=== PATIENT | female | born 1980 | race Caucasian/White ===

== ENCOUNTER 2016-09-20 21:09 | Inpatient (IN) | payer OTHER ==
--- NOTE | ~2016-09-20 | CR63 ---
[facility] A Service of [facility] RADIOLOGY TEXT RESULTS PATIENT: BERRY TRINH LOCATION: [facility] 229-01 : [birth year] UNIT #: [id number] AGE: [address]: Sara Aldridge MD SEX: F ORDER DR: [id number] [facility]. [place], [place] [address] [id number] MR#: [id number] Acc #: [id number] NAME: BERRY TRINH. : 1980 SEX: F STUDY DATE/TIME: 09/20/2016 22:03 UNIT: C3A PCU ROOM: Count includes the [facility] STUDY DESCRIPTION: CR Chest 2 View Attending Physician: Sara Aldridge M.D. Referring Physician: Jonn Castillo Pa-C Ordering Physician: Sher Perla M.D. Primary Care Physician: Jonn Castillo Pa-C MEDICAL IMAGING REPORT This report is preliminary unless electronic signature is present EXAM PA and lateral chest Date: 09/20/2016 HISTORY 36-year-old female shortness breath, dyspnea and chest pain for 2 days. COMPARISON PA and lateral chest 07/04/2011 FINDINGS Increased interstitial thickening is present within both lungs in comparison to the 2010 study which is nonspecific and could represent changes of atypical interstitial pneumonia or noncardiogenic edema. Heart size is not appreciably enlarged. No pleural effusion or pneumothorax is identified. No acute osseous abnormalities are seen. IMPRESSION Increased interstitial thickening is seen centrally in both lungs when compared to the 07/04/2011 chest radiograph, may represent changes of interstitial pneumonia. Noncardiogenic pulmonary edema may also be considered. The heart size does not appear enlarged. Dictated by... Ame Anne M.D. THIS IS AN ELECTRONICALLY VERIFIED REPORT Ame Anne M.D. at 09/25/2016 8:38 AM LLH/eladio TD: 09/21/2016 09:36 JOB #: [id number] [facility] A Service of [facility] RADIOLOGY TEXT RESULTS PATIENT: BERRY TRINH LOCATION: [facility] 229[facility] : [birth year] UNIT #: [id number] AGE: [address]: Sara Aldridge MD SEX: F ORDER DR: MEDICAL IMAGING REPORT Page 1 of 1 COPY
--- NOTE | ~2016-09-20 | HP ---
Unit #: [id number] #: [id number] Patient: BERRY TRINH [id number] [address] [place], [place] [address] [id number] I MR#: [id number] NAME: BERRY TRINH. ROOM: 339 Age: 36 Sex: F Admission Date: 09/21/2016 : 1980 Attending Physician: Jennifer Zhou M.D. Referring Physician: Jonn Castillo Pa-C Primary Care Physician: Jonn Castillo Pa-C HISTORY AND PHYSICAL CHIEF COMPLAINT COPD exacerbation pneumonia. HISTORY This pleasant 36-year-old female with COPD, chronic sinus disease, is admitted for COPD exacerbation and pneumonia. The patient was well until three days prior to admission when she developed a sore throat, rhinorrhea, deep cough productive of clear sputum with increasing shortness of breath and bronchospasm. She was seen by her primary care physician yesterday. Although her influenza swab was negative, she was started on Tamiflu just in case, given prednisone and what sounds to be Zithromax along with a Ventolin inhaler. She became increasingly dyspneic throughout the day, and developed nausea and vomiting. She presented to this emergency department late last evening with sinus tachycardia. Chest x-ray shows increased interstitial thickening both lungs, possibly consistent with pneumonia. In the ER she was treated with Solu-Medrol, Phenergan, Robitussin, being boluses with a liter of saline, Levaquin and Tylenol. She does have significant bronchospasm on exam. PAST MEDICAL HISTORY 1. COPD. 2. Chronic sinus disease. 3. Patient states that she was in a coma two years ago after a drug overdose requiring tracheostomy and PEG tube placement. 4. D and C. 5. BTL. 6. Bilateral ORIF ankle fractures. ALLERGIES Augmentin causing nausea and vomiting. HOME MEDICATIONS Patient takes Neurontin 400 mg q.h.s. p.r.n. She was prescribed Tamiflu, Ventolin, Zithromax, prednisone yesterday. FAMILY HISTORY Lung cancer and CAD. SOCIAL HISTORY The patient is living with her boyfriend. She smokes between 1/2 to 1 pack per day of tobacco but stopped smoking yesterday. Has not used drugs for some time, and does not drink alcohol. Patient wants to stop smoking. Unit #: [id number] #: [id number] Patient: BERRY TRINH REVIEW OF SYSTEMS Notable for shortness of breath, wheezing, cough, rhinorrhea, COPD, sinus disease, previous drug overdose and a coma for two months, above mentioned surgeries, tobacco use. All other systems were reviewed and otherwise negative. PHYSICAL EXAMINATION GENERAL: Pleasant, obese, 36-year-old female currently in no acute distress after receiving Phenergan. VITAL SIGNS: Temperature 98.8, pulse 138, current heart rate about 130, respirations 22, blood pressure 122/80, O2 saturation was 96% on room air initially but had dipped to about 90% intermittently. HEENT: Eyes - PERRLA, extraocular muscles are intact. Pharynx is benign. Tongue is pierced. NECK: Supple without adenopathy or thyromegaly. CHEST: Reveals expiratory wheezes bilaterally. CARDIAC: Tachy S1 and S2 without murmur. ABDOMEN: Bowel sounds are present. No hepatosplenomegaly, tenderness or masses. EXTREMITIES: Without clubbing, cyanosis or edema. Pedal pulses are present. NEUROLOGIC: Patient is awake, alert and oriented. Cranial nerves are intact. Equal strength throughout. DIAGNOSTIC STUDIES LABS: Hematocrit 40.9, white blood count is 14, normal platelet count. Cardiac markers negative. D-dimer is normal at 420. SMA 12 - glucose is 150, CO2 19. BNP normal. Blood cultures are pending. IMAGING STUDIES: Chest x-ray - increased interstitial thickening in both lungs. CARDIOLOGY STUDIES: EKG - sinus tachycardia rate 134. ASSESSMENT 1. COPD exacerbation with likely early pneumonia, which could be viral versus bacterial. Patent was appropriately treated yesterday, but is failing treatment. In the ER intermittently had decreased OT sats. 2. Sinus tachycardia. 3. Tobacco abuse. PLANS 1. Patient is already on Tamiflu, which I will continue. Given antibiotics, IV steroids, mucolytics, Xopenex mini-neb, and start Symbicort. 2. IV fluids and supportive treatment. 3. DVT prophylaxis. 4. Smoking cessation counseling. 5. Await blood cultures, will check thyroid function test and HIV. Dictated by Jennifer Zhou M.D. FRANCESCO/marylu Unit #: [id number] #: [id number] Patient: BERRY TRINH TD: 09/21/2016 05:44 JOB #: [id number] HISTORY AND PHYSICAL X Jennifer Zhou MD X HISTORY AND PHYSICAL
--- NOTE | ~2016-09-20 | DS ---
Unit #: [id number] #: [id number] Patient: BERRY TRINH [id number] [address] [place], [place] [address] [id number] I MR#: [id number] NAME: BERRY TRINH. ROOM: 229 Age: 36 Sex: F Admission Date: 09/21/2016 : 1980 Discharge Date: 09/24/2016 Attending Physician: Sara Aldridge M.D. Referring Physician: Jonn Castillo Pa-C Primary Care Physician: Jonn Castillo Pa-C DISCHARGE SUMMARY DISCHARGE DIAGNOSES 1. Acute hypoxic respiratory failure, which has resolved at this time. 2. Acute chronic obstructive pulmonary disease exacerbation and will be discharged with low-dose of steroid to taper. 3. Community-acquired pneumonia. We are treating for presumed gram-negative ian and the patient has been afebrile during her entire course of hospitalization. 4. B12 deficiency, replacing. 5. Obesity. Stressed weight loss with this patient. 6. Detectable glucose in her urine; will be checking for an Alc level. CONSULTANTS None. PROCEDURES None. DIAGNOSTIC STUDIES IMAGING STUDIES: Consist of a chest x-ray 2-view on 09/20/2016 with impression of increased interstitial thickening is seen essentially in both lungs when compared to that on 07/04/2011 chest radiograph that may represent changes of interstitial pneumonia, noncardiogenic pulmonary edema may also be considered, the heart size does not appear enlarged. Chest x-ray 2-view on 09/22/2016 with impression previously noted interstitial opacity, no acute cardiopulmonary findings. CT without contrast on 09/22/2016 with impression of mild patchy multifocal subsegmental infiltrates in the bilateral upper lobes and to a lesser degree in the right middle lobe. These are nonspecific, but could be due to multifocal pneumonia. Minimal subsegmental atelectasis in the right middle lobe and in the lingula. Small hiatal hernia. No adenopathy. No pleural effusion. LABORATORY RESULTS: The patient's latest labs include BMP with glucose of 131, BUN 18, creatinine 0.9, sodium 135, potassium 3.9, chloride 111, CO2 of 21, calcium 8.4, magnesium 2.0, total protein is 7.6, albumin is 4.1, total bilirubin is 0.7, AST is 27, ALT is 27, alkaline phosphatase is 46. BNP when assessed was 26. B12 when assessed was 212. TSH was 0.48, free T4 0.71. CBC with WBC of 21.6, RBC of 4.21, hemoglobin is 12.6, hematocrit is 38.9, MCV is 29.5, MCH is 30.0, MCHC is 32.4, RDW is 32.5, platelets are 307, MPV is 8.8. Unit #: [id number] #: [id number] Patient: BERRY TRINH We had the patient's blood drawn and cultured with no growth at this time. HOSPITAL COURSE The patient is a 36-year-old female who presented to the emergency department with 3 days symptoms prior to admission when she was feeling of sore throat, rhinorrhea, deep cough productive of clear sputum with increasing shortness of breath and bronchospasm. She was seen by her primary care physician the day prior to the hospitalization and had a flu swab, which was negative, but she was started on Tamiflu, just in case she was given prednisone and possibly azithromycin with Ventolin inhaler. She became increasingly dyspneic throughout the day of admission and developed nausea and vomiting. She presented to the emergency department when she was found to have sinus tachycardia. Chest x-ray shows increased interstitial thickening in both lungs concerning for a pneumonia. In the emergency department, she was given IV Solu-Medrol, Phenergan, Robitussin, and had been given bolus of saline as well as Levaquin and Tylenol. She had significant bronchospasm on exam and we have been treating the patient with Levaquin for the pneumonia, presumed to be gram-negative ian. Blood culture was drawn, but she had no growth at this time. The patient's admitting white blood count was 13,900. With hydration, that had improved to 9200, currently is 21,600 likely due to the steroid that she is receiving for the COPD exacerbation. She has been afebrile at this time. We have stressed with the patient the need to abstain from tobacco use that she had voiced understanding. At this time, she is not requiring oxygen. Room air saturation is 96%. We will be testing her oxygen with ambulation if she does well and does not desaturate into the 80s and she can be discharged home with continuing usage of bronchodilators, mucolytics, and 5 more days of Levaquin. I did check her urinalysis, which revealed no evidence of urine infection, but she did have greater than no ketone was detected, no protein was detected. She did not have any other symptoms of diabetes and her morning glucose in the last 2 days has been 118 and 131, and I will be checking an A1c level. I spoke with the patient that she can have her family doctor follow up with this A1c level. I stressed her about the need to lose weight for her obesity as well as lifestyle modification for the possibility of having diabetes. She voiced understanding. DISCHARGE MEDICATIONS Include Ventolin inhaler 2 puffs inhaled every 4 to 6 hours as needed for shortness of breath and/or wheezing; prednisone 40 mg orally for 3 days, 30 mg orally for 3 days, 20 mg orally for 3 days, 10 mg orally for 3 days; gabapentin 400 mg orally t.i.d. as was prior to hospitalization; Tessalon Perles 200 mg orally every 8 hours as needed for coughing, prescription was given; stop Tamiflu; stop azithromycin; Dulera 2 puffs inhaled b.i.d.; she can continue to have the guaifenesin over the counter 600 mg orally b.i.d.; vitamin B12 1000 mcg orally daily; Levaquin 750 mg orally daily for the next 5 days. The patient was asking for Robitussin with Codeine. We will leave this for Dr. Aldridge to assess and if needed, he will write the patient prescription as I do not have the authority to prescribe codeine. DISCHARGE CONDITION Stable. DISCHARGE INSTRUCTIONS Follow up with primary care physician within 1 to 2 weeks with a repeat chest x-ray to ensure resolution of her multifocal pneumonia. The patient's primary care physician is a partner of Dr. Jonn Castillo Unit #: [id number] #: [id number] Patient: BERRY TRINH which she cannot remember the name, but said that Dr. Castillo had retired and seeing somebody in the same facility. Dictated by... Nir Betancourt PA-C for Mansoor Moreno/surinder TD: 09/25/2016 06:11 JOB #: [id number] DISCHARGE SUMMARY Page 1 of 1 X X DISCHARGE SUMMARY
--- NOTE | ~2016-09-20 | CT57 ---
[facility] A Service of [facility] & [facility] RADIOLOGY TEXT RESULTS PATIENT: BERRY TRINH LOCATION: [facility] 339-01 : [birth year] UNIT #: [id number] AGE: [address]: Sara Aldridge MD SEX: F ORDER DR: [id number] [facility]. [place], [place] [address] [id number] I MR#: [id number] Acc #: [id number] NAME: BERRY TRINH. : 1980 SEX: F STUDY DATE/TIME: 09/22/2016 13:06 UNIT: [address] ROOM: [facility] STUDY DESCRIPTION: CT Chest Wo Cont Attending Physician: Sara Aldridge M.D. Referring Physician: Jonn Castillo Pa-C Ordering Physician: Sara Aldridge M.D. Primary Care Physician: Jonn Castillo Pa-C MEDICAL IMAGING REPORT This report is preliminary unless electronic signature is present EXAM CT chest without contrast HISTORY Pneumonia, COPD, cough, shortness of air and weakness since yesterday. TECHNIQUE This CT examination was performed with one or more of the following radiation dose reduction techniques: automatic exposure control, adjustment of mA and/or kV according to patient size, and iterative reconstruction. FINDINGS CT chest without contrast demonstrates minimal patchy multifocal subsegmental infiltrates in the bilateral upper lobes and, to a lesser degree in the right middle lobe. There is also mild subsegmental atelectasis in the medial right middle lobe and in the inferior lingula. No pleural effusions. No adenopathy. Normal caliber thoracic aorta. IMPRESSION 1. Mild patchy multifocal subsegmental infiltrates in the bilateral upper lobes and to a lesser degree in the right middle lobe. These are nonspecific but could be due to multifocal pneumonia. 2. Minimal subsegmental atelectasis in the right middle lobe and in the lingula. 3. Small hiatal hernia. 4. No adenopathy. No pleural effusions. Dictated by... Gustavo Gibson M.D. THIS IS AN ELECTRONICALLY VERIFIED REPORT [facility] A Service of [facility] & [facility] RADIOLOGY TEXT RESULTS PATIENT: BERRY TRINH LOCATION: [facility] 339-01 : [birth year] UNIT #: [id number] AGE: [address]: Sara Aldridge MD SEX: F ORDER DR: Gustavo Gibson M.D. at 09/23/2016 3:06 PM NATALIO/kelly TD: 09/23/2016 13:58 JOB #: [id number] MEDICAL IMAGING REPORT COPY
--- NOTE | ~2016-09-20 | EKG ---
PATIENT: BERRY TRINH UNIT #: [id number] Ventricular Rate: 134 BPM Atrial Rate: 134 BPM P-R Interval: 140 ms QRS Duration: 84 ms Q-T Interval: 298 ms QTC Calculation(Bezet): 445 ms P Berlin: 56 degrees Calculated R Berlin: 64 degrees Calculated T Berlin: 46 degrees Diagnosis Line: Sinus tachycardia Diagnosis Line: Poor R wave progression questionable lead position Diagnosis Line: or body habitus Nonspecific ST abnormality Diagnosis Line: Abnormal ECG Diagnosis Line: No previous ECGs available Diagnosis Line: Confirmed by VLADIMIR MO MD ([id number]) on 09/24/2016 Diagnosis Line: 7:17:19 AM INTERPRETING MD: CHELY SADLER
--- NOTE | ~2016-09-20 | CR63 ---
[facility] A Service of [facility] & [facility] RADIOLOGY TEXT RESULTS PATIENT: BERRY TRINH LOCATION: [facility] 339-01 : [birth year] UNIT #: [id number] AGE: [address]: Sara Aldridge MD SEX: F ORDER DR: [id number] [facility] [address] [facility]. [place], [place] [address] [id number] I MR#: [id number] Acc #: [id number] NAME: BERRY TRINH. : 1980 SEX: F STUDY DATE/TIME: 09/22/2016 7:46 UNIT: [address] ROOM: [facility] STUDY DESCRIPTION: CR Chest 2 View Attending Physician: Sara Aldridge M.D. Referring Physician: Jonn Castillo Pa-C Primary Care Physician: Jonn Castillo Pa-C MEDICAL IMAGING REPORT This report is preliminary unless electronic signature is present EXAM 2-view chest 09/22/2016 HISTORY 36-year-old female with shortness of air and cough beginning yesterday. Weakness. COMPARISON Chest 09/20/2016 FINDINGS 2 views of the chest demonstrates clear lungs. There has been interval improvement in previously noted interstitial opacities from the prior exam. No pleural effusion or pneumothorax. Heart size and mediastinum are normal. Pulmonary vasculature is unremarkable. IMPRESSION Interval clearing of previously noted interstitial opacities. No acute cardiopulmonary findings. Dictated by... Conner Arteaga M.D. THIS IS AN ELECTRONICALLY VERIFIED REPORT Conner Arteaga M.D. at 09/23/2016 6:08 AM DIAMANTE/william TD: 09/23/2016 05:17 JOB #: [id number] MEDICAL IMAGING REPORT COPY
--- NOTE | ~2016-09-20 | BMI ---
[facility] DATE: 09/21/16 Patient: BERRY TRINH Physician: ELIZABETH Address: [address] [place] [address] DRIVE Room/Bed: [address] [place] [address], Zip: [place] [address] Admit Date: 09/21/16 Date of : [birth year] Height: 5 5 Weight: 249 113.2 HIGH BMI NOTE: ANTHROPOMETRICS: HT: 65" WT: 113.2 KG BMI: 41.5 INTERVENTION: 1. REGULAR DIET RECOMMENDATIONS: 1. ADD HEART HEALTHY DIET RESTRICTION IN ORDER TO PROMOTE GRADUAL WEIGHT LOSS. Respectfully, ARA MORAN RD, LD [facility] cc: client file
[~2016-09-20 21:09] MED LIST: IBUPROFEN800 MG PO; NO MEDICATIONS; ROBAXIN 750750 M1 PO
[2016-09-20 22:04] LABS: BASOPHIL% 0.1 % (0-2.5); DIFF IND NO; EOSINOPHIL# 0.1 X10e3 (0-0.7); EOSINOPHIL% 0.5 % (0.0-7.0); HEMATOCRIT 40.9 % (35.0-45.0); HEMOGLOBIN 13.3 gm/dL (12.0-16.0); LYMPHOCYTE# 0.6 X10e3 (1.0-3.5); LYMPHOCYTE% 4.1 % (17.0-45.0); MEAN CELL VOLUME 91.8 FL (83-96); MEAN CORPUSCULAR HEMOGLOBIN 29.9 PG (28-34); MEAN CORPUSCULAR HGB CONC 32.6 g/dL (30-36); MEAN PLATELET VOLUME 8.6 FL (6.5-11.5); MONOCYTE# 0.2 X10e3 (0-1.0); MONOCYTE% 1.2 % (3.0-12.0); NEUTROPHIL# 13.1 X10e3 (1.5-7.1); NEUTROPHIL% 94.1 % (40-75); PLATELET COUNT 266 X10e3 (140-420); RED BLOOD COUNT 4.46 X10e (3.90-5.30); WHITE BLOOD COUNT 13.9 X10e3 (4.0-10.5)
[2016-09-20 22:32] LABS: ALBUMIN SERUM 4.1 g/dL (3.5-5.0); BILIRUBIN,TOTAL 0.7 mg/dL (0.2-2.0); BUN/CREATININE RATIO 11.81; CALCIUM SERUM 9.6 mg/dL (8.4-10.2); CREATININE SERUM 1.1 mg/dL (0.6-1.4); GLOM FILT RATE Estimated 59.7 mL/min (>60); POTASSIUM 3.5 mmol/L (3.5-5.1); PROTEIN TOTAL SERUM 7.6 g/dL (6.0-8.3)
[2016-09-20] MEDS ORDERED: ZITHROMAX1 G/PKT PO (23:07)
[2016-09-20] MEDS ORDERED: ALBUTEROL17 GM INH (23:07)
[2016-09-20] MEDS ORDERED: PREDNISONE50 MG (23:08)
[2016-09-20] MEDS ORDERED: GABAPENTIN400 MG PO (23:08)
[2016-09-20] MEDS ORDERED: TAMIFLU75 M1 PO (23:08)
[2016-09-20 23:09] LABS: POC - CKMB 1.1 ng/mL (0.0-7.9); POC - TROPONIN <0.05 ng/mL (<=0.05)
[2016-09-21 06:04] LABS: BASOPHIL% 0.1 % (0-2.5); HEMATOCRIT 37.3 % (35.0-45.0); HEMOGLOBIN 12.3 gm/dL (12.0-16.0); LYMPHOCYTE# 0.4 X10e3 (1.0-3.5); LYMPHOCYTE% 4.2 % (17.0-45.0); MEAN CELL VOLUME 92.7 FL (83-96); MEAN CORPUSCULAR HEMOGLOBIN 30.5 PG (28-34); MEAN CORPUSCULAR HGB CONC 32.9 g/dL (30-36); MEAN PLATELET VOLUME 8.9 FL (6.5-11.5); MONOCYTE# 0.1 X10e3 (0-1.0); MONOCYTE% 0.7 % (3.0-12.0); NEUTROPHIL# 8.7 X10e3 (1.5-7.1); PLATELET COUNT 241 X10e3 (140-420); RED BLOOD COUNT 4.02 X10e (3.90-5.30); RED CELL DISTRIBUTION WIDTH 13.1 % (11.0-15.5); WHITE BLOOD COUNT 9.2 X10e3 (4.0-10.5)
[2016-09-21 06:12] LABS: DIFF IND NO
[2016-09-21 06:34] LABS: THYROID STIMULATING HORMONE 0.48 uIU/ml (0.34-5.60)
[2016-09-21 06:41] LABS: FREE THYROXIN (T4) 0.71 ng/dL (0.58-1.64)
[2016-09-21 07:50] LABS: BLOOD UREA NITROGEN 14 mg/dL (9-23); CARBON DIOXIDE 16 mmol/L (22-31); CHLORIDE 111 mmol/L (100-111); GLOM FILT RATE Estimated ABOVE60 mL/min (>60); GLUCOSE FASTING 218 mg/dL (70-110); POTASSIUM 3.8 mmol/L (3.5-5.1); SODIUM 138 mmol/L (135-145)
[2016-09-21 15:51] LABS: URINE SOURCE CLEAN CATCH
[2016-09-21 16:03] LABS: URINE APPEARANCE CLEAR; URINE BILIRUBIN NEG (NEG); URINE BLOOD NEG (NEG); URINE COLOR YELLOW; URINE GLUCOSE >1000 MG/DL (NEG); URINE KETONE NEG (NEG); URINE LEUKOCYTE ESTERASE NEG (NEG); URINE NITRATE NEG (NEG); URINE PROTEIN NEG (NEG); URINE SPECIFIC GRAVITY 1.029 (1.003-1.035); URINE UROBILINOGEN 0.2 MG/DL (NEG)
[2016-09-21 16:18] LABS: AMPHETAMINE NEG (NEG); BARBITURATES NEG (NEG); BENZODIAZEPINES NEG (NEG); COCAINE NEG (NEG); MARIJUANA NEG (NEG); OPIATES POS (NEG); TRICYCLIC ANTIDEPRESSANTS NEG (NEG); U METHADONE NEG (NEG)
[2016-09-22 07:44] LABS: HEMOGLOBIN 13.1 gm/dL (12.0-16.0); MEAN CELL VOLUME 90.7 FL (83-96); MEAN CORPUSCULAR HEMOGLOBIN 30.3 PG (28-34); MEAN CORPUSCULAR HGB CONC 33.4 g/dL (30-36); MEAN PLATELET VOLUME 8.7 FL (6.5-11.5); RED BLOOD COUNT 4.31 X10e (3.90-5.30); RED CELL DISTRIBUTION WIDTH 13.2 % (11.0-15.5)
[2016-09-22 07:49] LABS: WHITE BLOOD COUNT 25.4 X10e3 (4.0-10.5)
[2016-09-22 08:03] LABS: BLOOD UREA NITROGEN 13 mg/dL (9-23); BUN/CREATININE RATIO 18.57; CALCIUM SERUM 8.7 mg/dL (8.4-10.2); CARBON DIOXIDE 19 mmol/L (22-31); CHLORIDE 114 mmol/L (100-111); CREATININE SERUM 0.7 mg/dL (0.6-1.4); GLOM FILT RATE Estimated ABOVE60 mL/min (>60); GLUCOSE FASTING 118 mg/dL (70-110); POTASSIUM 4.2 mmol/L (3.5-5.1); SODIUM 137 mmol/L (135-145)
[2016-09-22 14:42] LABS: INFLUENZA A NEG (NEG); INFLUENZA B NEG (NEG)
[2016-09-23 01:13] LABS: HEMATOCRIT 38.9 % (35.0-45.0); HEMOGLOBIN 12.6 gm/dL (12.0-16.0); MEAN CELL VOLUME 92.5 FL (83-96); MEAN CORPUSCULAR HGB CONC 32.4 g/dL (30-36); MEAN PLATELET VOLUME 8.8 FL (6.5-11.5); RED BLOOD COUNT 4.2 X10e (3.90-5.30); RED CELL DISTRIBUTION WIDTH 13.5 % (11.0-15.5); WHITE BLOOD COUNT 21.6 X10e3 (4.0-10.5)
[2016-09-23 01:39] LABS: BLOOD UREA NITROGEN 18 mg/dL (9-23); CALCIUM SERUM 8.4 mg/dL (8.4-10.2); CARBON DIOXIDE 21 mmol/L (22-31); CHLORIDE 111 mmol/L (100-111); CREATININE SERUM 0.9 mg/dL (0.6-1.4); GLOM FILT RATE Estimated ABOVE60 mL/min (>60); GLUCOSE FASTING 131 mg/dL (70-110); POTASSIUM 3.9 mmol/L (3.5-5.1); SODIUM 135 mmol/L (135-145)
[2016-09-24] MEDS ORDERED: BENZONATATE PO (09:58)
[2016-09-24] MEDS ORDERED: LEVAQUIN750 M1 PO (09:58)
[2016-09-24] MEDS ORDERED: B-121000 MC1 PO (09:59)
[2016-09-24] MEDS ORDERED: DULERA 100 MCG/13 GM INH (10:00)
== END 2016-09-24 11:57 | disposition home or self-care (01) | DRG 189 ==
LOC: CED 21:09 → CEDOF 09-21 00:30 → C3A PCU 09-21 02:10 → C2A 09-23 16:27
PROVIDERS: Emergency Medicine; Family Medicine; Internal Medicine
DX: J96.01 Acute respiratory failure with hypoxia (principal); J15.6 Pneumonia due to other Gram-negative bacteria; J10.08 Influenza due to other identified influenza virus with other specified pneumonia; J44.1 Chronic obstructive pulmonary disease with (acute) exacerbation; Z98.51 Tubal ligation status; R00.0 Tachycardia, unspecified; F17.210 Nicotine dependence, cigarettes, uncomplicated; E66.9 Obesity, unspecified; E53.8 Deficiency of other specified B group vitamins
CPT/HCPCS: 71020; 71250; 80048; 80053; 80307; 81003; 82553; 82607; 83735; 83880; 84439; 84443; 84484; 85025; 85027; 85379; 87040; 87804; 87806; 93005; 94640; 94644; 94664; 94760; 96374; 96375; 99291; J1650; J1956; J2550; J2920; J2930; J3420

== ENCOUNTER 2016-12-19 14:26 | Emergency (ER) | payer OTHER ==
--- NOTE | ~2016-12-19 | CT71 ---
[facility] A Service of [facility] RADIOLOGY TEXT RESULTS PATIENT: BERRY TRINH LOCATION: [facility] : 80 UNIT #: [id number] AGE: [address]: Carol Lozada APRN SEX: F ORDER DR: [id number] [facility] [address] [facility]. [place], [place] [address] [id number] MR#: [id number] Acc #: [id number] NAME: BERRY TRINH. : 1980 SEX: F STUDY DATE/TIME: 12/19/2016 16:55 UNIT: CFTX ROOM: STUDY DESCRIPTION: CT Head Wo Contrast Attending Physician: Carol Lozada A.P.R.N. Ordering Physician: [facility] Primary Care Physician: Sebastien Valencia M.D. MEDICAL IMAGING REPORT This report is preliminary unless electronic signature is present EXAM CT head INDICATIONS Headache and right eye pain. Right-sided head pain for [address] head dated 05/08/2011 and MR brain dated 07/23/2016. FINDINGS Axial noncontrast images were obtained from the skull base to the vertex. This CT exam was performed with one or more of the following radiation dose reduction techniques: automatic exposure control, adjustment of mA and/or kV according to patient size, and iterative reconstruction. Ventricular size and configuration are normal. There is no evidence of acute infarct or hemorrhage. There are no extra-axial fluid collections. No mass lesion or mass effect is seen. There are no skull fractures. Mild mucosal thickening is noted in the frontal sinuses and ethmoidal air cells. IMPRESSION Normal noncontrast head CT. Dictated by... Lemuel Lobo M.D. THIS IS AN ELECTRONICALLY VERIFIED REPORT Lemuel Lobo M.D. at 12/19/2016 7:19 PM DESIRAE/seymour [facility] A Service of [facility] RADIOLOGY TEXT RESULTS PATIENT: BERRY TRINH LOCATION: [facility] : [birth year] UNIT #: [id number] AGE: [address]: Carol Lozada APRN SEX: F ORDER DR: TD: 12/19/2016 18:41 JOB #: [id number] MEDICAL IMAGING REPORT Page 1 of 1 COPY
[~2016-12-19 14:26] MED LIST changes: +ALBUTEROL17 GM INH; +B-121000 MC1 PO; +BENZONATATE PO; +DULERA 100 MCG/13 GM INH; +GABAPENTIN400 MG PO; +LEVAQUIN750 M1 PO; +PREDNISONE50 MG; +TAMIFLU75 M1 PO; +ZITHROMAX1 G/PKT PO
== END 2016-12-19 17:40 | disposition home or self-care (01) ==
LOC: CED 14:26 → CFTX 14:26
DX: S05.01XA Injury of conjunctiva and corneal abrasion without foreign body, right eye, initial encounter (principal); R51 Headache; J45.909 Unspecified asthma, uncomplicated; Z88.1 Allergy status to other antibiotic agents; Z88.8 Allergy status to other drugs, medicaments and biological substances; Z79.899 Other long term (current) drug therapy; X58.XXXA Exposure to other specified factors, initial encounter; Y92.9 Unspecified place or not applicable
CPT/HCPCS: 36415; 70450; 96361; 96374; 96375; 99284; J1200; J1885; J2765

== ENCOUNTER 2017-01-30 07:37 | Inpatient (IN) | payer OTHER ==
[~2017-01-30] VITALS: Ht 165.1 cm; Wt 101.2 kg
--- NOTE | ~2017-01-30 | CO ---
Unit #: [id number] #: [id number] Patient: KENYA TRINH [id number] [facility] [address] [facility]. [place], [place] [address] [id number] I MR#: [id number] NAME: KENYA TRINH. ROOM: 219 Age: 36 Sex: F Admission Date: 01/30/2017 : 1980 Attending Physician: Mary Carmen Min M.D. Primary Care Physician: Sebastien Valencia M.D. CONSULTATION REPORT REASON FOR CONSULTATION Followup. DISCUSSION Ms. Kenya Trinh is a 36-year-old female, seen on 02/01/2017 in room 219 bed 1 at [facility]. The patient diagnosed with polysubstance abuse, amphetamine, cannabis abuse, history of depression, started on medication. The patient reports able to sleep good, decrease in anxiety. The patient denied any suicidal or homicidal ideation. Denied any psychotic symptom. The patient reports medication is helping her. No side effects from medication. The patient's vital signs; temperature 97.3, pulse 113, respirations 18, blood pressure 142/75, oxygen saturation 96%. MENTAL STATUS EXAMINATION General appearance; the patient dressed casually, lying comfortably in bed. Dressed in hospital attire. Attention span and concentration, fair. Speech, regular rate. Oriented in time, place, and person. Mood and affect, sad, dysphoric, flat, anxious. Thought process, coherent. Thought content, the patient denied any thoughts of harming self or others or any psychotic symptom. Recent and remote memory, fair. Language, intact. Fund of knowledge, fair. Insight and judgment, fair to slightly impaired. DIAGNOSES Psychiatric: Amphetamine use disorder, severe, F15.20; cannabis abuse disorder, moderate, F12.20; major depressive disorder, recurrent, severe F33.2. Secondary diagnosis: Deferred. ASSESSMENT AND PLAN 1. Supportive psychotherapy and psychoeducation provided to the patient. 2. Educated about benefits and side effects of medication and course and prognosis of illness. 3. Advised to continue with current combination of medication. If needed, consider further adjustment of medication. We will continue to follow. Please feel free to call if any questions telephone #[phone]. Dictated by... WyattMansoor Hair/surinder Unit #: [id number] #: [id number] Patient: KENYA TRINH TD: 02/02/2017 14:00 JOB #: [id number] CONSULTATION REPORT Page 1 of 1 X Wyatt Chacon MD CONSULTATION REPORT
--- NOTE | ~2017-01-30 | CO ---
Unit #: [id number] #: [id number] Patient: KENYA TRINH [id number] [address] [place], [place] [address] [id number] I MR#: [id number] NAME: KENYA TRINH ROOM: 219 Age: 36 Sex: F Admission Date: 01/30/2017 : 1980 Attending Physician: Carline Torres M.D. Primary Care Physician: Sebastien Valencia M.D. Consultation Date: 02/03/2017 CONSULTATION REPORT REASON FOR CONSULTATION Followup. DISCUSSION Ms. Kenya Trinh is a 36-year-old female, seen in room 219, bed 1, on 02/03/2017. The patient is reporting decrease in anxiety and depression and making progress. The patient reports able to sleep good. No side effects from medication. The patient's affect was bright. Mood good. Vital signs; temperature 98.3, heart rate 95, respiratory rate 18, blood pressure 128/64, and oxygen saturation 96%. The patient denied any suicidal or homicidal ideation. REVIEW OF SYSTEMS Complete review of systems unremarkable. MENTAL STATUS EXAMINATION General appearance; the patient dressed casually, lying comfortably in bed. Attention span and concentration, fair. Speech, regular rate. Oriented in time, place, and person. Mood and affect were brighter. Thought process, coherent. Thought content, the patient denied any thoughts of harming self or others or any psychotic symptom. Recent and remote memory, poor. Insight and judgment, poor. DIAGNOSES Amphetamine use disorder, severe, F15.20; cannabis abuse disorder, moderate, F12.20; and major depressive disorder, recurrent, severe, F33.2. ASSESSMENT AND PLAN 1. Supportive psychotherapy and psychoeducation provided to the patient. 2. Educated about benefits and side effects of medication and course and prognosis of illness. 3. Advised to continue with current medication and follow up in CD-[facility] program at [facility]. The patient was given crisis line #[phone]. Please feel free to call if any questions, telephone #[phone]. Dictated by... Wyatt Chacon M.D. PAULO/surinder TD: 02/03/2017 19:15 JOB #: [id number] Unit #: [id number] #: [id number] Patient: KENYA TRINH CONSULTATION REPORT Page 1 of 1 X Wyatt Chacon MD CONSULTATION REPORT
--- NOTE | ~2017-01-30 | CR63 ---
[facility] A Service of [facility] & [facility] RADIOLOGY TEXT RESULTS PATIENT: BERRY TRINH LOCATION: C2A 219- : [birth year] UNIT #: [id number] AGE: [address]: UMAIR MIN MD SEX: F ORDER DR: [id number] [facility] [address] [facility]. [place], [place] [address] [id number] I MR#: [id number] Acc #: [id number] NAME: BERRY TRINH. : 1980 SEX: F STUDY DATE/TIME: 01/31/2017 8:29 UNIT: [facility] ROOM: 219 STUDY DESCRIPTION: CR Chest 2 View Attending Physician: Umair Min M.D. Ordering Physician: Carline Torres M.D. Primary Care Physician: Sebastien Valencia M.D. MEDICAL IMAGING REPORT This report is preliminary unless electronic signature is present EXAM Chest, 01/31/2017, [facility]. HISTORY 36-year-old woman cough, congestion, short of breath, past history of asthma, COPD. COMPARISON 01/30/2017 FINDINGS PA and lateral chest views demonstrate normal cardiac size and configuration. Hilar structures and mediastinal contours are preserved. Bilateral lungs remain clear with no infiltrates, lung mass or effusion. IMPRESSION Negative chest. Dictated by... Haile Stoll M.D. THIS IS AN ELECTRONICALLY VERIFIED REPORT Haile Stoll M.D. at 01/31/2017 11:04 AM NKECHI/montez TD: 01/31/2017 09:40 JOB #: [id number] MEDICAL IMAGING REPORT Page 1 of 1 COPY
--- NOTE | ~2017-01-30 | CO ---
Unit #: [id number] #: [id number] Patient: KENYA TRINH [id number] [address] [place], [place] [address] [id number] I MR#: [id number] NAME: KENYA TRINH. ROOM: 219 Age: 36 Sex: F Admission Date: 01/30/2017 : 1980 Attending Physician: Carline Torres M.D. Primary Care Physician: Sebastien Valencia M.D. Consultation Date: 02/04/2017 CONSULTATION REPORT REASON FOR CONSULTATION Followup. DISCUSSION Ms. Kenya Trinh is a 36-year-old white female, seen in room 219, bed 1 on 02/04/2017. The patient reports making progress, sleep improved, decrease in anxiety. Tolerating medication fairly well. The patient reports that she will be leaving soon. The patient's WBC count is 18.2, still high. The patient denied any suicidal or homicidal ideation. Denied any psychotic symptom. The patient dressed casually in hospital attire, lying comfortably in bed. The patient's vital signs; temperature is 98.0, pulse 61, respirations 16, blood pressure 114/70, oxygen saturation 96%. REVIEW OF SYSTEMS Complete review of systems unremarkable. MENTAL STATUS EXAMINATION General appearance, the patient dressed casually, lying comfortably in bed. Attention span and concentration, fair. Speech, regular rate and coherent. Oriented in time, place, and person. Mood and affect, labile. Thought process, coherent. Thought content, the patient denied any thoughts of harming self or others or any hallucination. Recent and remote memory, fair. Language, intact. Fund of knowledge, fair. Insight and judgment, fair to poor. DIAGNOSES Psychiatric: Amphetamine use disorder, severe, F15.20; cannabis abuse disorder, moderate, F12.20; major depressive disorder, recurrent, severe, F33.2. ASSESSMENT AND PLAN 1. Supportive psychotherapy and psychoeducation provided to the patient. 2. Educated about benefits and side effects of medication and course and prognosis of illness. 3. Advised to continue with current medication. If needed, consider further adjustment of medication. The patient to follow up in [facility] program at [facility]. The patient was also given crisis line #[phone]. Dictated by... Mansoor Genao/surinder Unit #: [id number] #: [id number] Patient: KENYA TRINH TD: 02/04/2017 16:31 JOB #: [id number] CONSULTATION REPORT Page 1 of 1 X Wyatt Chacon MD CONSULTATION REPORT
--- NOTE | ~2017-01-30 | EKG ---
PATIENT: BERRY TRINH UNIT #: [id number] Ventricular Rate: 99 BPM Atrial Rate: 99 BPM P-R Interval: 144 ms QRS Duration: 80 ms Q-T Interval: 352 ms QTC Calculation(Bezet): 451 ms P Richardson: 50 degrees Calculated R Richardson: 64 degrees Calculated T Richardson: 19 degrees Diagnosis Line: Normal sinus rhythm Diagnosis Line: Normal ECG Diagnosis Line: When compared with ECG of 20-SEP-2016 21:28, Diagnosis Line: Criteria for Anterior infarct are no longer Diagnosis Line: Present Diagnosis Line: Confirmed by NATHALY APARICIO MD ([id number]) on Diagnosis Line: 01/30/2017 12:01:27 PM INTERPRETING MD: ALESSANDRA SADLER
--- NOTE | ~2017-01-30 | DS ---
Unit #: [id number] #: [id number] Patient: KENYA TRINH [id number] [address] [address] [id number] I MR#: [id number] NAME: KENYA TRINH. ROOM: 219 Age: 36 Sex: F Admission Date: 01/30/2017 : 1980 Discharge Date: 02/04/2017 Attending Physician: Carline Torres M.D. Primary Care Physician: Sebastien Valencia M.D. DISCHARGE SUMMARY FINAL DIAGNOSES 1. Acute respiratory failure. 2. Asthma/chronic obstructive pulmonary disease exacerbation. 3. Sinusitis. 4. Tobacco abuse. 5. Possible obstructive sleep apnea. 6. Leukocytosis, secondary to steroids. 7. Tobacco abuse. DISCHARGE MEDICATIONS 1. Mini neb treatment at home q.i.d. and q.4 p.r.n. 2. Prednisone tapering dose. 3. Neurontin 300 mg three times a day. 4. Zoloft 50 mg nightly. 5. Doxepin 50 mg nightly. 6. Vistaril 25 mg t.i.d. 7. Nicotine patch daily. 8. Dulera two puffs twice a day. CONSULTATIONS IN THE HOSPITAL 1. Dr. Agustin from pulmonary services. 2. Dr. Chacon from psych services. DIAGNOSTIC STUDIES LABORATORY: Lab workup on discharge: WBC 18.2, hemoglobin 12.4, hematocrit 37.3, and platelet count of 307,000. Sodium 142, potassium 4.6, chloride 111, BUN 18, creatinine 0.7, calcium 8.8. Blood cultures negative x2. TSH 2.34. Lactic acid 1.9. Urine drug screen negative on admission. HOSPITAL COURSE Ms. Keyna Trinh is a 36-year-old obese female, who was admitted to the hospital on January 30, 2017 with shortness of breath, chest tightness, and wheezing. The patient was admitted to med/surg unit. IV Solu-Medrol, bronchodilators were started. Patient did receive IV Zithromax during hospitalization. Dr. Agustin was consulted. The patient will be getting nebulizer treatment at home. Tobacco cessation counselling has been done. The patient was on 21 mg of nicotine in the hospital. We are going to change that 14 mg. Per patient, she has history of congestive heart failure. Echocardiogram was done which shows mild hypertrophic physiological with peak gradient of 36 mmHg. Normal mitral valve structure and function. Mild tricuspid regurgitation with right ventricular systolic pressure approximately 31. Normal pulmonic valve functions. Ejection fraction of 65% to 70%. Unit #: [id number] #: [id number] Patient: KENYA TRINH Patient has history of polysubstance, amphetamine, cannabis abuse, and history of depression. Supportive psychotherapy and psychoeducation was provided to patient. Dr. Wyatt Chacon was consulted. Patient's medication was written by Dr. Chacon. Patient has been given a crisis line, [phone] and also will need to continue to follow with [facility]. She does verbalize understanding. PHYSICAL EXAMINATION Examination on discharge: VITAL SIGNS: Blood pressure 114/70, respiratory rate 16, pulse 61, temperature 98, oxygen saturation is 96%. CHEST: Fair air entry. CARDIOVASCULAR: Regular rhythm. ABDOMEN: Soft, obese. DISCHARGE INSTRUCTIONS 1. The patient is being discharged home in stable condition. 2. Medication as per med rec. 3. Followup Dr. Agustin in two weeks. 4. Tobacco cessation counseling done. 5. CBC in one week to evaluate leukocytosis which is most likely secondary to steroid. Dictated by... Mansoor Flores/baljinder TD: 02/06/2017 09:07 JOB #: [id number] DISCHARGE SUMMARY Page 1 of 1 X Carline Torres MD X DISCHARGE SUMMARY
--- NOTE | ~2017-01-30 | CO ---
Unit #: [id number] #: [id number] Patient: KENYA TRINH [id number] [address] [place], [place] [address] [id number] I MR#: [id number] NAME: KENYA TRINH ROOM: 219 Age: 36 Sex: F Admission Date: 01/30/2017 : 1980 Attending Physician: Mary Carmen Min M.D. Primary Care Physician: Sebastien Valencia M.D. Consultation Date: 02/02/2017 CONSULTATION REPORT REASON FOR CONSULTATION Followup. DISCUSSION Ms. Kenya Trinh is a 36-year-old white female, seen in room 219, bed 1 on 02/02/2017. The patient dressed casually, lying comfortably in bed. The patient reports her anxiety and depression is getting better. Sleeping good. No side effects from medication. Denied any suicidal or homicidal ideation. The patient's vital signs; temperature 98.1, pulse 109, respirations 18, blood pressure 135/72, and oxygen saturation 96%. REVIEW OF SYSTEMS A complete review of systems is unremarkable. MENTAL STATUS EXAMINATION General appearance; the patient dressed casually, lying comfortably in bed. Attention span and concentration, fair. Speech; regular rate and coherent. Oriented in time, place, and person. Mood and affect were sad, dysphoric, but able to smile. Thought process, coherent. Thought content; the patient denied any suicidal or homicidal ideation. Denied any psychotic symptom. Recent and remote memory, fair. Language, intact. Fund of knowledge, fair. Insight and judgment, fair to slightly impaired. DIAGNOSES Psychiatric: Amphetamine use disorder, severe, F15.20; cannabis abuse, [id number], F12.20; major depressive disorder, recurrent, severe, F33.2. ASSESSMENT AND PLAN 1. Supportive psychotherapy and psychoeducation provided to the patient. 2. Educated about benefits and side effects of medication and course and prognosis of illness. 3. Advised to continue with current combination of medication. If needed, consider further adjustment of medication. Please feel free to call if any questions, telephone #[phone]. Dictated by... Wyatt Chacon M.D. PAULO/surinder TD: 02/02/2017 21:34 JOB #: [id number] Unit #: [id number] #: [id number] Patient: KENYA TRINH CONSULTATION REPORT Page 1 of 1 X Wyatt Chacon MD CONSULTATION REPORT
--- NOTE | ~2017-01-30 | CR72 ---
[facility] A Service of [facility] & [facility] RADIOLOGY TEXT RESULTS PATIENT: BERRY TRINH LOCATION: [facility] : [birth year] UNIT #: [id number] AGE: [address]: UMAIR ZULETA MD SEX: F ORDER DR: [id number] [facility] [address] [facility]. [place], [place] [address] [id number] MR#: [id number] Acc #: [id number] NAME: BERRY TRINH. : 1980 SEX: F STUDY DATE/TIME: 01/30/2017 7:58 UNIT: [facility] ROOM: STUDY DESCRIPTION: CR Chest Single View Portable Attending Physician: Miguel Smith M.D. Ordering Physician: Miguel Smith M.D. Primary Care Physician: Sebastien Valencia M.D. MEDICAL IMAGING REPORT This report is preliminary unless electronic signature is present EXAM Portable chest 01/30/2017 [facility]. HISTORY 36-year-old female short of air cough, congestion, body aches. Symptoms x3 days. History of asthma. COMPARISON Chest 09/22/2016. FINDINGS AP portable chest demonstrates normal cardiac size and configuration. Hilar structures and mediastinal contours are preserved. Bilateral lungs are expanded and clear. Costophrenic angles are clear. Bony thorax appears normal. IMPRESSION Negative chest. Dictated by... Haile Stoll M.D. THIS IS AN ELECTRONICALLY VERIFIED REPORT Haile Stoll M.D. at 01/30/2017 1:19 PM NKECHI/eladio TD: 01/30/2017 11:22 JOB #: [id number] MEDICAL IMAGING REPORT Page 1 of 1 COPY
--- NOTE | ~2017-01-30 | CO ---
Unit #: [id number] #: [id number] Patient: BERRY TRINH [id number] [address] [place], [place] [address] [id number] I MR#: [id number] NAME: BERRY TRINH. ROOM: 219 Age: 36 Sex: F Admission Date: 01/30/2017 : 1980 Attending Physician: Mary Carmen Min M.D. Primary Care Physician: Sebastien Valencia M.D. Consultation Date: 01/31/2017 CONSULTATION REPORT REASON FOR CONSULTATION COPD exacerbation. HISTORY OF PRESENT ILLNESS This is a 36-year-old female who has a history of either asthma or COPD with recent episode of "pneumonia" back in September of this year. She was discharged, did better and now has increasing shortness of breath. She has cough and wheezing. No sputum production. No hemoptysis. No fever. PAST MEDICAL HISTORY Past medical history is remarkable for possible COPD. She tells me that she was diagnosed with COPD, then had an outpatient test that said she did not. Those details are unavailable. She has a history of ongoing active tobacco use, history 2 years ago of a critical illness requiring trach and PEG secondary to an accidental overdose, history of IV heroin use (clean now), this admission in September for COPD exacerbation, possible pneumonia. CT scan was reviewed, and I doubt that represented true pneumonia. If anything, it was a mild atypical pneumonia. MEDICATIONS AT HOME She is on Dulera but uses it only p.r.n., as needed albuterol. She is also on Neurontin and cough medicine. ALLERGIES Amoxicillin, primarily Augmentin. SOCIAL HISTORY She continues to smoke a pack of cigarettes a day. She does not drink. She denies recreational drug use. Her is present for the interview and confirms. He did state that she tends to smoke more than she admits. FAMILY HISTORY She has asthma, possible COPD and lung cancer in her family. REVIEW OF SYSTEMS No fever, chills, weight loss. She carries the diagnosis of congestive heart failure but does not follow up with a vest finisher and has not had her heart evaluated recently. She tells me she was told she had congestive heart failure during this critical illness 2 years ago. 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 Occasionally her legs will swell. Denies acute swelling or redness in her legs. No abdominal pain, melena, hematochezia, hematemesis, hematuria, dysuria, chest pain, palpitations. Further review Unit #: [id number] #: [id number] Patient: FAIR,BERRY N of systems is negative. PHYSICAL EXAMINATION GENERAL: Examination reveals a patient who is in no acute distress on room air, lying in bed with her daughter. is present and sitting in a chair. VITAL SIGNS: Afebrile. Pulse 100, respiratory rate 18, blood pressure 147/83. She is 5'5", 222 pounds, BMI 37. HEENT: Pupils equal, round and reactive to light. Sclerae anicteric. Head atraumatic. Mucous membranes moist. NECK: Supple. No supraclavicular or cervical adenopathy appreciated. CHEST: Tight expiratory wheeze throughout all lung arenas. No consolidation. No stridor. CARDIAC: Examination reveals mild tachycardia (1) . No murmur, rub or gallop. ABDOMEN: Abdomen is soft, nontender. No hepatomegaly or rebound. EXTREMITIES: Extremities reveal no clubbing, cyanosis or edema. No calf tenderness. SKIN: Warm and dry without rash or diaphoresis. NEUROLOGIC: Grossly intact. No focal muscular or sensory deficits. DIAGNOSTIC STUDIES LABORATORY EXAMINATION: BUN is 8, creatinine is 0.8. LFTs mildly elevated with an AST of 93, an ALT of 172. Cardiac enzymes negative. CBC - White blood cell count 14.3; otherwise, negative. No abnormal eosinophilia. Eosinophil count was 5.3, which is normal in this lab. Tox screen negative. Blood cultures performed and are pending. IMAGING: Chest x-ray - No pneumonia. CARDIOVASCULAR: EKG - Essentially normal. IMPRESSION 1. Asthma/COPD exacerbation. 2. Ongoing active tobacco use. 3. History of "congestive heart failure." Doubt significant LV function currently. 4. Prolonged critical illness in the past secondary to overdose. 5. Neuropathy. PLAN IV steroids, antibiotics for bronchitis. There is no evidence of respiratory failure or pneumonia. Certainly, no smoking is of great benefit, and this was discussed in great detail. Certainly, compliance with her Dulera has been discussed, and she has been educated. Once she improves, outpatient PFTs would be suggested. I will check an echocardiogram to rule out occult left ventricular dysfunction. I suspect will be able to change of address clerk to p.o. antibiotics soon and, hopefully, get her off IV steroids soon. Thank you very much for allowing me to participate in the care of Mrs. Trinh. Dictated by... Alberto Agustin M.D. Unit #: [id number] #: [id number] Patient: BERRY TRINH BHARATI/yvrose TD: 02/01/2017 08:39 JOB #: [id number] CONSULTATION REPORT Page 1 of 1 X Alberto Agustin MD X CONSULTATION REPORT
--- NOTE | ~2017-01-30 | HP ---
Unit #: [id number] #: [id number] Patient: BERRY TRINH [id number] [address] [place], [place] [address] [id number] I MR#: [id number] NAME: BERRY TRINH. ROOM: 219 Age: 36 Sex: F Admission Date: 01/30/2017 : 1980 Attending Physician: Mary Carmen Min M.D. Primary Care Physician: Sebastien Valencia M.D. HISTORY AND PHYSICAL CHIEF COMPLAINT Shortness of breath, chest tightness, and wheezing. HISTORY OF PRESENTING ILLNESS A 36-year-old female who has a history of COPD came with the complaint of shortness of breath. According to patient, it has been going on for the last three days. She went to see Dr. Sebastien Valencia yesterday and received some cough medications but did not get better and continued to get worse. Patient came to the ER and is being admitted for acute COPD exacerbation. Patient does have a history of COPD, and she continued to smoke. According to her, she quit just a few days ago. She has been smoking for a long period of time. She tried to quit for six months but has restarted. She complains of body ache for several days and complains of cough which is dry. There is no sputum production. She does not complain of fever, chills, or rigors. Actually, she is feeling hot. No complaint of dizziness or syncopal episode. PAST MEDICAL HISTORY 1. Chronic obstructive pulmonary disease. 2. Tobacco abuse. 3. Coma after drug overdose requiring tracheostomy and PEG two years ago. 4. Questionable history of seizures, follows with a neurologist. According to her, she has multiple complications from coma. 5. Former IV drug abuser, clean for some time since her coma. PAST SURGICAL HISTORY 1. Dilatation and curettage. 2. Bilateral ankle surgery. 3. Tubal ligation. HOME MEDICATIONS 1. Gabapentin 300 mg 3 times daily. 2. Dulera 1 puff inhaler daily. 3. Promethazine p.r.n. 4. Ventolin inhaler as needed. 5. Tessalon Perles p.r.n. ALLERGIES Augmentin. FAMILY HISTORY Patient does have a strong family history of malignancy. PHYSICAL EXAMINATION Unit #: [id number] #: [id number] Patient: BERRY TRINH GENERAL: Patient is being evaluated in room 219. VITAL SIGNS: Blood pressure 122/81, respiratory rate 20, pulse 125, temperature 98.8, and oxygen saturation is 95%. HEENT: Head is normocephalic. Eye movements are normal. No conjunctival congestion. NECK: Supple. CHEST: Decreased air entry. Bilateral wheezing is heard. CARDIOVASCULAR: S1 and S2 positive. Regular rhythm. Tachycardia. ABDOMEN: Soft. EXTREMITIES: Negative edema. CENTRAL NERVOUS SYSTEM: Awake, alert, and oriented x3. No focal neurological deficit. DIAGNOSTIC STUDIES LABORATORY: Troponin less than 0.05. WBC 14.3, hemoglobin 14.4, hematocrit 43.7, and platelet count of 299,000. Lactic acid 1.9. Sodium 137, potassium 3.8, BUN 8, creatinine 0.8, AST 93, and ALT 172. IMAGING: Chest x-ray, single view, was done in the ER which showed no acute infiltrate. CARDIOLOGY: EKG shows normal sinus rhythm. ASSESSMENT Patient is being admitted to medical/surgical with: 1. Acute chronic obstructive pulmonary disease exacerbation. 2. Tobacco abuse. 3. Sinus tachycardia. 4. Hypokalemia. 5. History of coma after drug overdose requiring tracheostomy and percutaneous endoscopic gastrostomy about two years ago. PLAN Admit to med/surg unit. IV Solu-Medrol is being started. Bronchodilators are being started. IV Rocephin and Zithromax will be started. Dr. Lucien Ramirez will be consulted. Mucinex 600 mg b.i.d. Procalcitonin level will be done. Chest x-ray, PA and lateral, will be repeated in the morning. Labs will be repeated in the morning. Potassium will be replaced and TSH will be done. Please refer to progress note for further orders. Dictated by Mansoor Flores TD: 01/30/2017 19:45 JOB #: [id number] Unit #: [id number] #: [id number] Patient: BERRY TRINH HISTORY AND PHYSICAL Page 1 of 1 X Carline Torres MD X HISTORY AND PHYSICAL
--- NOTE | ~2017-01-30 | CO ---
Unit #: [id number] #: [id number] Patient: KENYA TRINH [id number] [facility] [address] [place], [place] [address] [id number] MR#: [id number] NAME: KENYA TRINH. ROOM: 219 Age: 36 Sex: F Admission Date: 01/30/2017 : 1980 Attending Physician: Mary Carmen Min M.D. Primary Care Physician: Sebastien Valencia M.D. Consultation Date: 01/31/2017 CONSULTATION REPORT REASON FOR CONSULTATION Amphetamine abuse, marijuana abuse, depression, anxiety. HISTORY OF PRESENT ILLNESS Ms. Kenya Trinh is a 36-year-old white female seen in room 219, bed 1, on 01/31/2017 at [facility]. Patient dressed in hospital attire, sitting comfortably in bed, seems somewhat anxious. Patient reported that she has a history of amphetamine abuse, cannabis abuse, feeling sad, depressed, anxious. Patient reported that she would like to go on medication. Patient reports having trouble falling asleep, staying asleep, feeling sad, depressed, having severe anxiety attacks, panic attacks. Denied any suicidal or homicidal ideation, denied any psychotic symptoms. Patient reported that she (1)[cut out] program and developed shortness of breath, tightness of chest, possible pneumonia, subsequently admitted to inpatient. Patient has a long history of substance abuse with IV drug abuse. PAST PSYCHIATRIC HISTORY Remarkable for history of depression, anxiety and substance abuse as mentioned above. MEDICAL HISTORY Remarkable for chronic obstructive pulmonary disease, coma after drug overdose requiring tracheostomy and PEG 2 years ago. MEDICATIONS Patient is on: 1. Gabapentin 300 mg three times a day 2. Dulera 3. Promethazine 4. Ventolin inhaler 5. Tessalon Perles p.r.n. ALLERGIES Augmentin FAMILY HISTORY AND SOCIAL HISTORY Patient reported she has a poor support system. No history of abuse. History of substance abuse, as mentioned above. REVIEW OF SYSTEMS Complete review of system is unremarkable, except as mentioned above. MENTAL STATUS EXAMINATION Unit #: [id number] #: [id number] Patient: KENYA TRINH VITAL SIGNS: 98.7, 106, 18, 147/83, oxygen saturation 97% GENERAL APPEARANCE: Patient casually dressed in hospital attire. ATTENTION SPAN AND CONCENTRATION: Fair. SPEECH: Rapid in rate. ORIENTATION: Patient oriented in time, place and person. MOOD AND AFFECT: Labile. THOUGHT PROCESS: Circumstantial. THOUGHT CONTENT: Patient denied any thoughts of harming self or others or any hallucinations. RECENT AND REMOTE MEMORY: Fair. LANGUAGE: Intact. FUND OF KNOWLEDGE: Fair. INSIGHT AND JUDGMENT: Fair to slightly impaired. DIAGNOSES 1. PSYCHIATRIC A. Amphetamine use disorder, recurrent, F15.20 B. Cannabis abuse disorder, moderate, F12.20 C. Major depressive disorder, recurrent, severe, F33.2 2. SECONDARY DIAGNOSIS: Deferred. 3. MEDICAL DIAGNOSIS: Please refer to H and P. 4. STRESSORS: Psychosocial stressors. ASSESSMENT/PLAN 1. Supportive psychotherapy and psychoeducation provided to the patient. 2. Educated about benefits and side effects of medication and course and prognosis of illness. 3. Recommending to start patient on Celexa 20 mg daily for depression; Desyrel 50 mg at bedtime for sleep; Vistaril 25 mg three times a day for anxiety. Patient is currently on Neurontin and Solu-Medrol, which Solu-Medrol can make her anxiety much worse. If needed, consider further adjustment on medication. We will continue to follow. Please feel free to call with any questions, telephone number . Dictated by... Wyatt Chacon M.D. PAULO/radha TD: 01/31/2017 23:23 JOB #: [id number] CONSULTATION REPORT Page 1 of 1 X Wyatt Chacon MD CONSULTATION REPORT
[2017-01-30 09:06] LABS: BASOPHIL% 0.2 % (0-2.5); EOSINOPHIL# 0.8 X10e3 (0-0.7); EOSINOPHIL% 5.3 % (0.0-7.0); HEMATOCRIT 43.7 % (35.0-45.0); HEMOGLOBIN 14.4 gm/dL (12.0-16.0); LYMPHOCYTE# 2.7 X10e3 (1.0-3.5); LYMPHOCYTE% 18.7 % (17.0-45.0); MEAN CELL VOLUME 89.7 FL (83-96); MEAN CORPUSCULAR HEMOGLOBIN 29.5 PG (28-34); MEAN CORPUSCULAR HGB CONC 32.9 g/dL (30-36); MEAN PLATELET VOLUME 7.9 FL (6.5-11.5); MONOCYTE# 0.8 X10e3 (0-1.0); MONOCYTE% 5.3 % (3.0-12.0); NEUTROPHIL# 10.1 X10e3 (1.5-7.1); NEUTROPHIL% 70.5 % (40-75); PLATELET COUNT 299 X10e3 (140-420); RED BLOOD COUNT 4.87 X10e (3.90-5.30); RED CELL DISTRIBUTION WIDTH 12.6 % (11.0-15.5); WHITE BLOOD COUNT 14.3 X10e3 (4.0-10.5)
[2017-01-30 09:10] LABS: POC - CKMB <1.0 ng/mL (0.0-7.9); POC - TROPONIN <0.05 ng/mL (<=0.05)
[2017-01-30 09:16] LABS: DIFF IND NO
[2017-01-30 09:27] LABS: ALBUMIN SERUM 4.1 g/dL (3.5-5.0); BILIRUBIN, DIRECT 0.1 mg/dL (0.0-0.2); BILIRUBIN,INDIRECT 0.4 mg/dL (0.0-0.9); BILIRUBIN,TOTAL 0.5 mg/dL (0.2-2.0); CALCIUM SERUM 9.3 mg/dL (8.4-10.2); CREATININE SERUM 0.8 mg/dL (0.6-1.4); GLOM FILT RATE Estimated 94.9 mL/min (>60); POTASSIUM 3.8 mmol/L (3.5-5.1); PROTEIN TOTAL SERUM 7.7 g/dL (6.0-8.3)
[2017-01-30 10:49] LABS: POC - CKMB <1.0 ng/mL (0.0-7.9); POC - TROPONIN <0.05 ng/mL (<=0.05)
[2017-01-30] MEDS ORDERED: GABAPENTIN300 MG PO (11:47)
[2017-01-30] MEDS ORDERED: PATIENT'S PHARMACY (11:47)
[2017-01-30] MEDS ORDERED: DULERA 100 MCG/13 GM INH (11:51)
[2017-01-30] MEDS ORDERED: PROMETHAZINE-P118 ML PO (11:53)
[2017-01-31 13:43] LABS: HEMATOCRIT 38.4 % (35.0-45.0); HEMOGLOBIN 12.7 gm/dL (12.0-16.0); MEAN CELL VOLUME 90.6 FL (83-96); MEAN CORPUSCULAR HEMOGLOBIN 29.9 PG (28-34); MEAN PLATELET VOLUME 8.1 FL (6.5-11.5); RED BLOOD COUNT 4.24 X10e (3.90-5.30); RED CELL DISTRIBUTION WIDTH 13.2 % (11.0-15.5); WHITE BLOOD COUNT 29.4 X10e3 (4.0-10.5)
[2017-01-31 13:56] LABS: BLOOD UREA NITROGEN 14 mg/dL (9-23); CALCIUM SERUM 9.1 mg/dL (8.4-10.2); CARBON DIOXIDE 18 mmol/L (22-31); CHLORIDE 111 mmol/L (100-111); CREATININE SERUM 0.8 mg/dL (0.6-1.4); GLOM FILT RATE Estimated 94.9 mL/min (>60); GLUCOSE FASTING 183 mg/dL (70-110); POTASSIUM 4.4 mmol/L (3.5-5.1); SODIUM 138 mmol/L (135-145)
[2017-01-31 14:36] LABS: PROCALCITONIN <0.05 NG/ML
[2017-02-01 05:20] LABS: HEMATOCRIT 35.3 % (35.0-45.0); HEMOGLOBIN 11.8 gm/dL (12.0-16.0); MEAN CELL VOLUME 90.5 FL (83-96); MEAN CORPUSCULAR HEMOGLOBIN 30.3 PG (28-34); MEAN CORPUSCULAR HGB CONC 33.5 g/dL (30-36); RED BLOOD COUNT 3.91 X10e (3.90-5.30); RED CELL DISTRIBUTION WIDTH 12.9 % (11.0-15.5); WHITE BLOOD COUNT 25.2 X10e3 (4.0-10.5)
[2017-02-01 05:56] LABS: BUN/CREATININE RATIO 25.71; CALCIUM SERUM 8.8 mg/dL (8.4-10.2); CREATININE SERUM 0.7 mg/dL (0.6-1.4); GLOM FILT RATE Estimated 111.5 mL/min (>60); POTASSIUM 4.6 mmol/L (3.5-5.1)
[2017-02-04 08:31] LABS: HEMATOCRIT 37.3 % (35.0-45.0); HEMOGLOBIN 12.4 gm/dL (12.0-16.0); MEAN CELL VOLUME 90.3 FL (83-96); MEAN CORPUSCULAR HGB CONC 33.3 g/dL (30-36); MEAN PLATELET VOLUME 7.8 FL (6.5-11.5); RED BLOOD COUNT 4.13 X10e (3.90-5.30); RED CELL DISTRIBUTION WIDTH 13.3 % (11.0-15.5); WHITE BLOOD COUNT 18.2 X10e3 (4.0-10.5)
[2017-02-04] MEDS ORDERED: NICOTINE TRANSD14 MG TOP (13:40)
[2017-02-04] MEDS ORDERED: ZOLOFT50 MG PO (13:42)
[2017-02-04] MEDS ORDERED: PROVENTIL INH0.5 ML NEB (13:42)
[2017-02-04] MEDS ORDERED: DOXEPIN HCL50 M1 PO (13:43)
[2017-02-04] MEDS ORDERED: VISTARIL PO (13:43)
[2017-02-04] MEDS ORDERED: DELTASONE20 MG PO (13:44)
== END 2017-02-04 15:21 | disposition home or self-care (01) | DRG 191 ==
LOC: CED 07:37 → C2A 11:30 → CEDOF 11:30 → C2A 12:02 → CED 12:02 → CEDOF 12:02 → C2A 13:06 → CEDOF 13:06 → C2A 02-04 08:21
PROVIDERS: Emergency Medicine; Physician Assistant Medical
PROC: B246YZZ Ultrasonography of Right and Left Heart using Other Contrast (ICD-10-PCS; principal; 2017-01-31)
DX: J44.0 Chronic obstructive pulmonary disease with (acute) lower respiratory infection (principal); J45.901 Unspecified asthma with (acute) exacerbation; Z93.0 Tracheostomy status; F33.2 Major depressive disorder, recurrent severe without psychotic features; I50.32 Chronic diastolic (congestive) heart failure; F15.20 Other stimulant dependence, uncomplicated; J20.9 Acute bronchitis, unspecified; J44.1 Chronic obstructive pulmonary disease with (acute) exacerbation; J32.9 Chronic sinusitis, unspecified; G47.33 Obstructive sleep apnea (adult) (pediatric); D72.829 Elevated white blood cell count, unspecified; T38.0X5A Adverse effect of glucocorticoids and synthetic analogues, initial encounter; Z88.1 Allergy status to other antibiotic agents; Z80.1 Family history of malignant neoplasm of trachea, bronchus and lung; Z82.5 Family history of asthma and other chronic lower respiratory diseases; E87.6 Hypokalemia; R00.0 Tachycardia, unspecified; F12.20 Cannabis dependence, uncomplicated
CPT/HCPCS: 36415; 71010; 71020; 80048; 80076; 82308; 82553; 83605; 84443; 84484; 85025; 85027; 87040; 87633; 93005; 93306; 94640; 94644; 94664; 94760; 99285; C9113; J0456; J0696; J1650; J2270; J2405; J2920; J2930